=== PATIENT | female | born 1960 | race Caucasian/White ===

== ENCOUNTER 2021-01-23 09:55 | Day surgery (SDC) | payer OTHER ==
[2021-01-13 14:55] LABS: BASOPHILS % (AUTO) 0.7 % (0-1); LYMPHOCYTES # (AUTO) 1.2 X10'3 (1.1-4.8); LYMPHOCYTES % (AUTO) 31.9 % (21-51); MEAN CORPUSCULAR HGB CONC 32.9 g/dL (33.0-36.5); MEAN PLATELET VOLUME 7.6 FL (7.4-10.4); MONOCYTES # (AUTO) 0.5 X10'3 (0-0.9); MONOCYTES % (AUTO) 13.4 % (2-12); PRE OP HEMATOCRIT 33.2 % (35.0-45.0); PRE OP PLATELET COUNT 233 X10'3 (140-440); RED BLOOD COUNT 3.91 X10'6 (4.20-5.60); RED CELL DISTRIBUTION WIDTH 16.4 % (11.5-14.5)
[2021-01-13 14:57] LABS: CLARITY,URINE CLEAR (Clear); COLOR,URINE YELLOW (Yellow); GLUCOSE, URINE NEGATIVE (Neg); KETONES,URINE NEGATIVE (Neg); LEUKOCYTE ESTERASE ,URINE NEGATIVE (Neg); NITRITES, URINE NEGATIVE (Neg); OCCULT BLOOD,URINE NEGATIVE (Neg); PH,URINE 6.5 (4.8-8.0); PROTEIN,URINE NEGATIVE (Neg)
[2021-01-13 14:58] LABS: PRE OP HEMOGLOBIN 10.9 g/dL (12.0-16.0)
[2021-01-13 15:12] LABS: UA COLLECTION TYPE CLN CATCH MIDSTREAM
[2021-01-13 15:13] LABS: ALBUMIN 3.6 G/DL (3.4-5.0); ALKALINE PHOSPHATASE 86 IU/L (46-116); BLOOD UREA NITROGEN 4 MG/DL (7-18); BUN/CREATININE RATIO 6.3 (6.6-38.0); CALCIUM 8.8 MG/DL (8.5-10.1); CHLORIDE 100 MMOL/L (99-107); CREATININE 0.64 MG/DL (0.40-0.90); PRE OP ALT 20 U/L (30-65); PRE OP ANION GAP 9 (8-16); PRE OP AST 23 U/L (10-37); PRE OP BILIRUB, TOTAL 0.3 MG/DL (0.0-1.0); PRE OP GLUCOSE 108 MG/DL (70-104); PRE OP SODIUM 138 MMOL/L (135-145); TOTAL CARBON DIOXIDE 28.8 MMOL/L (24-32); TOTAL PROTEIN 7.1 G/DL (6.4-8.2); eGFR > 90 ML/MIN
[2021-01-13 15:14] LABS: PRE OP POTASSIUM 3.3 MMOL/L (3.4-5.1)
[~2021-01-23] VITALS: Ht 157.5 cm; Wt 63.5 kg
[2021-01-23] VITALS (7 sets, daily range): BP systolic 121–149; BP diastolic 68–85
[~2021-01-23 09:55] MED LIST: ALPR-624 PO; ESCI5TAB PO; MIRT-116 PO; TRAM50TA2 PO; cefazolin/dext.iso 2gm/100ml IV ONE; famotidine 20mg tablet PO ONE; ringers solution, lacted 1,000 ML IV SCH
[2021-01-23 11:08] LABS: ISTAT ANION GAP 9 (8-12); ISTAT BUN 7 mg/dL (7-18); ISTAT CL 98 mmol/L (99-107); ISTAT CREATININE 0.6 mg/dL (0.6-1.1); ISTAT GLUCOSE 94 mg/dL (70-105); ISTAT HGB 12.6 g/dl (12.0-16.0); ISTAT Hct 37 %PCV (35-48); ISTAT IONIZED CALCIUM 1.17 mmol/L (1.03-1.32); ISTAT K 3.8 mmol/L (3.5-5.1); ISTAT NA 138 mmol/L (135-145); ISTAT TOTAL CO2 31 mmol/L (24-32); ISTAT eGFR > 90 ML/MIN; POC BUN/CREATININE RATIO 11.7 (6.6-38.0)
[2021-01-23] MEDS ORDERED: BUPIVAcaine/PF 2.5 mg/ml (0.25%) 30ml vial ONE (14:54)
[2021-01-23] MEDS ORDERED: bacitracin 15gm ointment TP ONE (14:54)
[2021-01-23] MEDS ORDERED: ROPIVAcaine 0.5% (5mg/ml) 30ml vial ONE (15:07)
[2021-01-23] MEDS ORDERED: fentaNYL/PF 50MCG/1 ML 2ML syringe ONE (15:08)
[2021-01-23] MEDS ORDERED: MIDAZolam 1 MG/ML 5ML VIAL ONE (15:09)
[2021-01-23] MEDS ORDERED: propofol inj 20 ML IV ONE (15:13)
[2021-01-23] MEDS ORDERED: meperidine/PF 25mg/ml syringe IV PRN ×3 (15:50)
[2021-01-23] MEDS ORDERED: ROPIVAcaine 0.2%/PF PUMP/bolus 545 ML POPLITEAL SCH (15:50)
[2021-01-23] MEDS ORDERED: morphine 2 MG/ML inj. syringe IV PRN (15:50)
[2021-01-23] MEDS ORDERED: ringers solution, lacted 1,000 ML IV SCH (15:50)
[2021-01-23] MEDS ORDERED: morphine 4 MG/ML inj SYRINge IV PRN (15:50)
[2021-01-23] MEDS ORDERED: ROPIVAcaine 0.2% (10 MG/5 ML) BOLUS INJECTION POPLITEAL PRN (15:50)
[2021-01-23] MEDS ORDERED: proCHLORperazine 10 MG/2 ml inj IV PRN (15:50)
[2021-01-23] MEDS ORDERED: ondansetron/PF 4mg/2ml inj IV PRN (15:50)
[2021-01-23] MEDS ORDERED: dexamethasone sod phosphate 4mg/ml inj. ONE (16:03)
[2021-01-23] MEDS ORDERED: ondansetron/PF 4mg/2ml inj ONE (16:03)
[2021-01-23] MEDS ORDERED: labetalol 20mg/4ml (5mg/ml) syringe IV ONE (17:45)
--- NOTE | 2021-01-23 19:43 | NUR ---
Received from OR via ELISA, accompanied by Anesthesiologist CLARISSA and report given by Anesthesiolgist. PATIENT WITH 20G PIV IN LEFT FOREARM. VSS. DENIES PAIN. CANNOT FEEL SENSATION TO TOES TO RIGHT FOOT OF YET. PATIENT WITH + CAP REFILL. PATIENT WITH 20G PIV IN RIGH TUE RUNNING LR AT 100. Addendum: 01/23/21 at 1952 by John Barnett RN, RN Amended: Links added.
--- NOTE | 2021-01-23 20:56 | NUR ---
SPOUSE AND PATIENT THOROUGHLY EDUCATED ON USE AND DISCONTINUANCE OF ON Q PUMP. ALL BROCHURES INCLUED WELL BANDAIDS. DEMONSTRATED SAFE NWB RLE AMBULATION WITH FWW. NO LOB AND WAS SAFE WITH WALKER. OUT VIA WHEELCHAIR TO PERSONAL VEHICLE WITH NO C.O. PAIN. Addendum: 01/23/21 at 2057 by John Barnett RN, RN Amended: Links added.
== END 2021-01-23 20:43 | disposition home or self-care (01) ==
LOC: PAS 09:55
PROVIDERS: ATTEND Podiatrist Foot & Ankle Surgery
DX: M19.071 Primary osteoarthritis, right ankle and foot (principal); M21.41 Flat foot [pes planus] (acquired), right foot; G89.18 Other acute postprocedural pain; F41.9 Anxiety disorder, unspecified; F32.9 Major depressive disorder, single episode, unspecified; Z20.822 Contact with and (suspected) exposure to COVID-19; Z79.899 Other long term (current) drug therapy; Z79.82 Long term (current) use of aspirin; Z88.8 Allergy status to other drugs, medicaments and biological substances; Z72.89 Other problems related to lifestyle; Z98.84 Bariatric surgery status; Z90.49 Acquired absence of other specified parts of digestive tract
CPT/HCPCS: 20900; 28715; 36415; 64446; 64448; 73620; 76000; 76937; 80047; 80053; 81003; 85025; 93005; A6223; C1713; C1762; J1100; J2250; J2405; J2704; J2795; J3010; J3490; J7120; J7121; U0003; U0005; A4215; A4618; A6253; A6449; A7000

== ENCOUNTER 2022-06-25 12:00 | Inpatient (IN) | payer OTHER ==
[~2022-06-25] VITALS: Ht 157.5 cm; Wt 67.3 kg
[~2022-06-25 12:00] MED LIST changes: -TRAM50TA2 PO; -cefazolin/dext.iso 2gm/100ml IV ONE; -famotidine 20mg tablet PO ONE; -ringers solution, lacted 1,000 ML IV SCH
[2022-07-06 14:09] LABS: BASOPHILS % (AUTO) 0.8 % (0-1); EOSINOPHILS % (AUTO) 0.8 % (0-6); LYMPHOCYTES % (AUTO) 31.5 % (21-51); MEAN CORPUSCULAR HEMOGLOBIN 26.6 PG (27.0-31.0); MEAN CORPUSCULAR HGB CONC 32.4 g/dL (33.0-36.5); MEAN CORPUSCULAR VOLUME 82.1 FL (78-98); MEAN PLATELET VOLUME 7.5 FL (7.4-10.4); MONOCYTES # (AUTO) 0.4 X10'3 (0-0.9); MONOCYTES % (AUTO) 12.9 % (2-12); NEUTROPHILS # (AUTO) 1.8 X10'3 (1.8-7.7); PRE OP PLATELET COUNT 216 X10'3 (140-440); RED BLOOD COUNT 3.57 X10'6 (4.20-5.60); RED CELL DISTRIBUTION WIDTH 16.6 % (11.5-14.5)
[2022-07-06 14:11] LABS: PRE OP HEMATOCRIT 29.3 % (35.0-45.0); PRE OP HEMOGLOBIN 9.5 g/dL (12.0-16.0)
[2022-07-06 14:23] LABS: ALBUMIN 3.7 G/DL (3.4-5.0); ALBUMIN/GLOBULIN RATIO 1.1 (1.1-1.5); ALKALINE PHOSPHATASE 99 IU/L (46-116); BLOOD UREA NITROGEN 8 MG/DL (7-18); BUN/CREATININE RATIO 12.9 (6.6-38.0); CALCIUM 8.7 MG/DL (8.5-10.1); CHLORIDE 98 MMOL/L (99-107); CREATININE 0.62 MG/DL (0.40-0.90); PRE OP ALT 20 U/L (30-65); PRE OP ANION GAP 8 (8-16); PRE OP AST 31 U/L (10-37); PRE OP BILIRUB, TOTAL 0.5 MG/DL (0.0-1.0); PRE OP GLUCOSE 99 MG/DL (70-104); PRE OP SODIUM 136 MMOL/L (135-145); TOTAL CARBON DIOXIDE 29.6 MMOL/L (24-32); eGFR > 90 ML/MIN
[2022-07-06 14:28] LABS: PRE OP POTASSIUM 3.2 MMOL/L (3.4-5.1)
[2022-07-15] MEDS ORDERED: ERGO500056 PO (11:38)
[2022-07-15] MEDS ORDERED: CEPH500C2 PO (11:38)
[2022-07-15] MEDS ORDERED: ASPI-1071 PO (11:38)
[2022-07-16] VITALS (17 sets, daily range): BP systolic 119–175; BP diastolic 59–88
[2022-07-16] MEDS ORDERED: ceFAZolin/D5W- 1GM premix 50 ML IV ONE (05:30)
[2022-07-16] MEDS ORDERED: vancomycin/NS 1 GM in NS 250 ML IV ONE (05:30)
[2022-07-16] MEDS ORDERED: famotidine 20mg tablet PO ONE (05:30)
[2022-07-16] MEDS ORDERED: ceFAZolin inj. 2,000 MG in dextrose 5%-water 100 ML IV ONE (05:30)
[2022-07-16] MEDS ORDERED: bacitracin 15gm ointment TP ONE ×2 (06:36→13:10)
[2022-07-16] MEDS ORDERED: BUPIVAcaine/PF 2.5 mg/ml (0.25%) 30ml vial ONE (06:36)
[2022-07-16] MEDS: ringers solution, lacted 1,000 ML IV SCH ×2 (06:54→16:31)
[2022-07-16] MEDS ORDERED: ROPIVAcaine 0.5% (5mg/ml) 30ml vial ONE ×2 (06:57→08:56)
[2022-07-16 07:13] LABS: ISTAT ANION GAP 10 (8-12); ISTAT BUN 6 mg/dL (7-18); ISTAT CL 92 mmol/L (99-107); ISTAT CREATININE 0.4 mg/dL (0.6-1.1); ISTAT GLUCOSE 93 mg/dL (70-104); ISTAT HGB 10.9 g/dl (12.0-16.0); ISTAT Hct 32 %PCV (35-45); ISTAT IONIZED CALCIUM 1.06 mmol/L (1.03-1.32); ISTAT K 3.3 mmol/L (3.5-5.1); ISTAT NA 131 mmol/L (135-145); ISTAT TOTAL CO2 29 mmol/L (24-32); ISTAT eGFR > 90 ML/MIN
[2022-07-16] MEDS ORDERED: vancomycin 1,000mg inj ONE (07:28)
[2022-07-16] MEDS ORDERED: diazepam 5mg tablet PO ONE (07:35)
[2022-07-16] MEDS ORDERED: sevoflurane 250ml liquid IH ONE (08:22)
[2022-07-16] MEDS ORDERED: LIDOcaine 1% (10mg/ml)w/preservative inj. 20ml MDV ONE (08:22)
[2022-07-16] MEDS ORDERED: ondansetron/PF 4mg/2ml inj ONE (08:22)
[2022-07-16] MEDS ORDERED: fentaNYL/PF 50MCG/1 ML 2ML syringe ONE (08:36)
[2022-07-16] MEDS ORDERED: MIDAZolam 1 MG/ML 5ML VIAL ONE (08:36)
[2022-07-16] MEDS ORDERED: BUPIVAcaine/PF 7.5mg/ml (0.75%) 10ml vial ONE (08:56)
[2022-07-16] MEDS ORDERED: dexamethasone sod phosphate 4mg/ml inj. ONE (09:14)
[2022-07-16] MEDS ORDERED: propofol inj 20 ML IV ONE (09:14)
[2022-07-16] MEDS ORDERED: meperidine/PF 25mg/ml syringe IV PRN ×3 (10:20)
[2022-07-16] MEDS ORDERED: morphine 2 MG/ML inj. syringe IV PRN (10:20)
[2022-07-16] MEDS ORDERED: ringers solution, lacted 1,000 ML IV SCH (10:20)
[2022-07-16] MEDS ORDERED: ROPIVAcaine 0.2%/PF PUMP/bolus 545 ML POPLITEAL SCH (10:20)
[2022-07-16] MEDS ORDERED: morphine 4 MG/ML inj SYRINge IV PRN (10:20)
[2022-07-16] MEDS ORDERED: ondansetron/PF 4mg/2ml inj IV PRN ×2 (10:20→13:35)
[2022-07-16] MEDS ORDERED: ROPIVAcaine 0.2% (10 MG/5 ML) BOLUS INJECTION POPLITEAL PRN (10:20)
[2022-07-16] MEDS ORDERED: proCHLORperazine 10 MG/2 ml inj IV PRN (10:20)
[2022-07-16] MEDS ORDERED: fentaNYL /PF 50mcg/ml 5ml ampule ONE (11:52)
[2022-07-16] MEDS ORDERED: bisacodyl 10mg suppository rectal RC PRN (13:35)
[2022-07-16] MEDS ORDERED: diphenhydrAMINE 25mg capsule PO PRN ×2 (13:35)
[2022-07-16] MEDS ORDERED: HYDROmorphone inj. 0.5 MG/0.5 ML DISP.SYRIN IV PRN (13:35)
[2022-07-16] MEDS ORDERED: naloxone 0.4 mg/ml inj IV PRN (13:35)
[2022-07-16] MEDS ORDERED: HYDROcodone/acetaminophen 10/325mg tab PO PRN ×2 (13:35)
[2022-07-16] MEDS ORDERED: magnesium hydroxide 30ml (MOM) UD suspension PO PRN (13:35)
[2022-07-16] MEDS ORDERED: acetaminophen 325mg tablet PO PRN (13:35)
--- NOTE | 2022-07-16 13:40 | NUR ---
Received from OR via , accompanied by Anesthesiologist and report given by Anesthesiolgist. PATIENT A&OX4, DENIES PAIN, V/S STABLE, SCD ON, SPLINT DRESSING TO RIGHT FOOT CDI AND ELEVATED WITH ICE BAG APPLIED, 20G PIV TO LUE.
--- NOTE | 2022-07-16 13:55 | NUR ---
Received report from CARAMEL CUTTER HELPERRichard
--- NOTE | 2022-07-16 14:20 | NUR ---
Received from OR via , accompanied by Anesthesiologist and report given by Anesthesiolgist. PATIENT A&OX4, DENIES PAIN, V/S WNL , NEUROVASCULAR CHECKS INTACT, SPLINT DRESSING TO RIGHT FOOT CDI, SCD ON, 20G LUE. PATIENT TAKEN TO SURGICAL FLOOR ROOM WITH ALL BELONGINGS AND HOOKED UP TO ALL MONITORS IN ROOM AND REPORT GIVEN TO RN WHO HAS TAKEN OVER PATIENT CARE.
[2022-07-16] MEDS: HYDROmorphone 1 mg/ml syringe IV PRN ×2 (15:36→21:18)
[2022-07-16] MEDS: ceFAZolin/D5W- 1GM premix 50 ML IV SCH (16:25)
[2022-07-16] MEDS ORDERED: PCA WASTE DOCUMENTATION MC SCH (17:00)
--- NOTE | 2022-07-16 18:31 | NUR ---
Patient in room [facility]. I have received report from MARY JANE SCHAFER and had the opportunity to ask questions and assume patient care.
--- NOTE | 2022-07-16 18:40 | NUR ---
Problems reprioritized. Patient report given, questions answered & plan of care reviewed with GILMAR Pierre.
[2022-07-16] MEDS ORDERED: sennosides 8.6mg tablet PO SCH (21:00)
[2022-07-17] MEDS: ceFAZolin/D5W- 1GM premix 50 ML IV SCH (00:27)
[2022-07-17] MEDS: HYDROmorphone 1 mg/ml syringe IV PRN ×3 (01:32→10:43)
[2022-07-17 02:00] VITALS: BP 137/69
[2022-07-17 06:00] VITALS: BP 134/77
--- NOTE | 2022-07-17 06:20 | NUR ---
Patient in room [facility] 340. I have received report from GILMAR Pierre and had the opportunity to ask questions and assume patient care.
--- NOTE | 2022-07-17 06:28 | NUR ---
Problems reprioritized. Patient report given, questions answered & plan of care reviewed with MARY JANE RN.
[2022-07-17] MEDS ORDERED: magnesium 4gm in 100ml NS 100 ML IV PRN (07:30)
[2022-07-17] MEDS ORDERED: magnesium Cl slow-release 64mg tablet PO PRN (07:30)
[2022-07-17] MEDS ORDERED: magnesium 2GM in 50ml NS 50 ML IV PRN (07:30)
[2022-07-17] MEDS ORDERED: potassium Cl 40MEQ/1/2NS 520ml 520 ML IV PRN (07:30)
[2022-07-17] MEDS ORDERED: potassium Cl 20 mEq SR tablet PO PRN (07:30)
[2022-07-17] MEDS ORDERED: K and/or MAG REPLACEMENT MC SCH (08:00)
[2022-07-17 08:04] LABS: ALANINE AMINOTRANSFERASE 14 U/L (12-78); ALBUMIN 3.1 G/DL (3.4-5.0); ALKALINE PHOSPHATASE 87 IU/L (46-116); ANION GAP 11 (8-16); ASPARTATE AMINO TRANSFERASE 22 U/L (10-37); BILIRUBIN,TOTAL 0.4 MG/DL (0.1-1.0); BLOOD UREA NITROGEN 6 MG/DL (7-18); BUN/CREATININE RATIO 5.8 (6.6-38.0); CALCIUM 8.2 MG/DL (8.5-10.1); CHLORIDE 98 MMOL/L (99-107); CREATININE 1.04 MG/DL (0.40-0.90); GLUCOSE 109 MG/DL (70-104); MAGNESIUM 1.2 MG/DL (1.5-2.4); SODIUM 136 MMOL/L (135-145); TOTAL CARBON DIOXIDE 27.2 MMOL/L (24-32); TOTAL PROTEIN 6.1 G/DL (6.4-8.2); eGFR 54 ML/MIN
[2022-07-17 08:05] LABS: BASOPHILS % (AUTO) 0.2 % (0-1); EOSINOPHILS % (AUTO) 0 % (0-6); HEMATOCRIT 24.4 % (35.0-45.0); LYMPHOCYTES % (AUTO) 15.9 % (21-51); MEAN CORPUSCULAR HEMOGLOBIN 26.6 PG (27.0-31.0); MEAN CORPUSCULAR HGB CONC 32.6 g/dL (33.0-36.5); MEAN CORPUSCULAR VOLUME 81.6 FL (78-98); MEAN PLATELET VOLUME 7.7 FL (7.4-10.4); MONOCYTES # (AUTO) 0.9 X10'3 (0-0.9); MONOCYTES % (AUTO) 13.8 % (2-12); NEUTROPHILS # (AUTO) 4.3 X10'3 (1.8-7.7); NEUTROPHILS % (AUTO) 70.1 % (42-75); PLATELET COUNT 198 X10'3 (140-440); RED BLOOD COUNT 2.99 X10'6 (4.20-5.60); RED CELL DISTRIBUTION WIDTH 17.2 % (11.5-14.5); WHITE BLOOD COUNT 6.1 X10'3 (4.5-11.0)
[2022-07-17 08:07] LABS: POTASSIUM 2.7 MMOL/L (3.5-5.1)
[2022-07-17] MEDS: potassium Cl 20 mEq SR tablet PO PRN ×2 (08:24→13:08)
[2022-07-17 10:00] VITALS: BP 126/67
--- NOTE | 2022-07-17 14:05 | NUR ---
DC inst provided to pt & pt's . IV DC'd, tip intact. All belongings sent w/pt. WC to vehicle.
== END 2022-07-17 14:05 | disposition home or self-care (01) | DRG 469 ==
LOC: PAS IN 07-16 05:26 → SUR 3N 07-16 14:28
PROVIDERS: ADMIT Podiatrist Foot & Ankle Surgery; ATTEND Podiatrist Foot & Ankle Surgery
PROC: 0SPH04Z Removal of Internal Fixation Device from Right Tarsal Joint, Open Approach (ICD-10-PCS; 2022-07-16)
PROC: 0SGH07Z Fusion of Right Tarsal Joint with Autologous Tissue Substitute, Open Approach (ICD-10-PCS; 2022-07-16)
PROC: 0QBG0ZZ Excision of Right Tibia, Open Approach (ICD-10-PCS; 2022-07-16)
PROC: 0SGH04Z Fusion of Right Tarsal Joint with Internal Fixation Device, Open Approach (ICD-10-PCS; 2022-07-16)
PROC: 3E0T3BZ Introduction of Anesthetic Agent into Peripheral Nerves and Plexi, Percutaneous Approach (ICD-10-PCS; 2022-07-16)
PROC: 3E0T33Z Introduction of Anti-inflammatory into Peripheral Nerves and Plexi, Percutaneous Approach (ICD-10-PCS; 2022-07-16)
PROC: 0SRF0JZ Replacement of Right Ankle Joint with Synthetic Substitute, Open Approach (ICD-10-PCS; principal; 2022-07-16 08:22)
DX: M19.071 Primary osteoarthritis, right ankle and foot (principal); M87.88 Other osteonecrosis, other site; M21.41 Flat foot [pes planus] (acquired), right foot; F41.9 Anxiety disorder, unspecified; F32.A Depression, unspecified; Z88.5 Allergy status to narcotic agent
CPT/HCPCS: Z7506; Z7508; 36415; 73600; 76000; 80047; 80053; 82948; 83735; 85025; 87081; 93005; 97116; 97161; 97530; A4618; A6223; A6253; A6449; A7000; C1713; C1734; C1757; C1769; C1776; G0378; J0690; J1100; J1170; J2250; J2405; J2704; J2795; J3010; J3370; J3490; J7060; J7120